=== PATIENT | male | born 1980 | race Caucasian/White ===

== ENCOUNTER 2017-01-21 02:08 | Emergency (ER) | payer OTHER ==
[~2017-01-21] VITALS: Ht 170.2 cm; Wt 93.0 kg
[~2017-01-21 02:08] MED LIST: OXYCODONE HYDROC5 MG PO; PHENERGAN25 M1 PO; PHENERGAN25 MG PO; SERTRALINE HYD100 MG PO; SERTRALINE HYDR50 MG PO; ZOLPIDEM TARTRA10 MG PO
[2017-01-21 02:31] VITALS: BP 133/83
--- NOTE | 2017-01-21 03:28 | ED UPPER/LOWER EXTREMITY COMPL ---
History of Present Illness General Chief Complaint: Laceration Procedure Stated Complaint: LAC TO RIGHT KNEE Source: patient Exam Limitations: no limitations Vital Signs & Intake/Output Vital Signs & Intake/Output Vital Signs Date Time Temp Pulse Resp B/P B/P Pulse O2 O2 Flow FiO2 Mean Ox Delivery Rate 01/21 0233 Room Air 01/21 0231 97.7 86 16 133/83 97 Room Air Allergies Coded Allergies: diphenhydramine (From BENADRYL) (Mild, SHAKEY 01/21/17) [id number] Antimigraine Agents (JOINT PAIN 01/21/17) Reconcile Medications Oxycodone Hydrochloride 5 MG TAB 1 TAB PO PRN PRN HEADACHE (Reported) Promethazine Hydrochloride (Phenergan) 25 MG SUP 1 TAB PO Q6 NAUSEA Promethazine Hydrochloride (Phenergan) 25 MG TAB 1 TAB PO Q6H PRN NAUSEA SERTRALINE HCL (Sertraline Hydrochloride) 100 MG TABLET 1 TAB PO DAILY DEPRESSION (Reported) Zolpidem Tartrate 10 MG TAB 1 TAB PO AT BEDTIME INSOMNIA (Reported) Triage Note: 36YO MALE TO TRIAGE W/CO LAC TO R KNEE SP CUT ON SOMETHING SHARP STICKING LOUT OF TRASH BAG WHILE TAKING OUT TRASH TONITE. Triage Nurses Notes Reviewed? yes HPI: Patient is a 36-year-old male past medical history of degenerative disc disease and insomnia presenting for a laceration of his right medial knee. The patient states he was taking out the trash and tripped on the last step. He was carrying a recycling bag and kicked it as he tripped. He cut his knee on some glass which he did not know was in the bag. He reports feeling slightly dizzy at the time. He denies any headaches, weakness, numbness, or tingling. He reports his last tetanus shot was 8 years ago. (RIO BARTLETT,[facility]) Past History Travel History Traveled to [place] past 21 day No Medical History Any Pertinent Medical History? see below for history Neurological: migraine Musculoskeletal: chronic back pain, DEGENERATIVE DISK DISEASE Psychiatric: insomnia Surgical History Surgical History: appendectomy Psychosocial History Who do you live with Other (see notes) Services at Home None What is your primary language Maltese Tobacco Use: Quit >30 days ago ETOH Use: denies use Illicit Drug Use: denies illicit drug use Family History Family History, If Any: MOTHER Relation not specified for: FHx: skin cancer Hx Contributory? No (RIO BARTLETT,[facility]) Review of Systems Review of Systems Constitutional: Denies: chills, diaphoresis, fever, malaise. EENTM: Reports: no symptoms. Respiratory: Reports: no symptoms. Cardiovascular: Reports: no symptoms. Gastrointestinal/Abdominal: Reports: no symptoms. Genitourinary: Reports: no symptoms. Musculoskeletal: Reports: see HPI. Skin: Reports: see HPI. Neurological/Psychological: Reports: see HPI, other. (RIO BARTLETT,[facility]) Review of Systems Hematologic/Endocrine: Reports: no symptoms. Immunological: Reports: no symptoms. All Other Systems: Reviewed and Negative (GERTRUDIS DIEHL MD) Physical Exam Physical Exam General Appearance: well developed/nourished, alert, awake, mild distress Head: atraumatic, normal appearance Cardiovascular/Respiratory: normal breath sounds Peripheral Pulses: 2+ radial (R), 2+ radial (L), 2+ tibialis posterior (R), 2+ tibialis posterior ( L), 2+ dorsalis pedis (R), 2+ dorsalis pedis (L) Gastrointestinal: soft, nontender, no rebound, no guarding Normal bowel sounds. Knee Right: right medial knee laceration 2-1/2 inches in diameter Comments: 5/5 UE and LE strength b/l (RIO BARTLETT,[facility]) Physical Exam Eyes: Bilateral: normal appearance, PERRL, EOMI. Ears, Nose, Throat: normal pharynx, normal ENT inspection Neck: normal inspection, supple, full range of motion Back: normal inspection, normal range of motion Shoulder Left: normal range of motion, normal inspection Shoulder Right: normal range of motion, normal inspection Elbow Left: normal range of motion, normal inspection Elbow Right: normal range of motion, normal inspection Hand Left: normal inspection, normal range of motion Hand Right: normal inspection, normal range of motion Leg Left: normal range of motion, normal inspection Leg Right: normal range of motion, normal inspection Hip Left: normal range of motion, normal inspection Hip Right: normal range of motion, normal inspection Knee Left: normal range of motion, normal inspection Foot Left: normal inspection, normal range of motion Foot Right: normal inspection, normal range of motion Neurologic/Tendon: normal sensation, normal motor functions, normal tendon functions (GERTRUDIS DIEHL MD) Progress Differential Diagnosis: laceration of R knee Plan of Care: Patient required 6 stitches. Comments: R medial knee laceration requiring 6 stitiches. Patient advised stitiches would need to be in place for 7-10 days and to follow up with PCP. (RIO BARTLETT,VELMA) Departure Departure Disposition: HOME OR SELF CARE Condition: Stable Clinical Impression Primary Impression: Laceration Referrals: CARLOS BARTLETT,HONORIO Casper (PCP/Family) Additional Instructions: Please keep stitches and wound area clean dry and intact. Please follow-up with your primary care physician within one week. Please return to the emergency department for worsening redness, swelling, pain, or new onset of pus. His return to the emergency department for any new concerns or worsening symptoms. Departure Forms: Customer Survey General Discharge Information (VELMA PATE MD) Resident Co-Sign Statement Statement: ED Attending supervision documentation- x I saw and evaluated the patient. I have also reviewed all the pertinent lab results and diagnostic results. I agree with the findings and the plan of care as documented in the Resident's documentation. [] I have reviewed the ED Record and agree with the Resident's documentation. [] Additions or exceptions (if any) to the Resident's note and plan are summarized below: [] (GERTRUDIS DIEHL MD) Procedures Laceration/Wound Repair Laceration/Wound Repair: Wound Location: lower extremity Wound's Depth, Shape: irregular, superficial Wound Length (cm): 4 Wound Explored: clean, no foreign body removed, irrigated extensively Irrigated w/ Saline (ccs): 250 Betadine Prep? No Anesthesia: lidocaine w/ epi Volume Anesthetic (ccs): 5 Wound Repaired With: sutures Suture Size/Type: 4:0, nylon Number of Sutures: 6 Layer Closure? No Sterile Dressing Applied: Yes Splint Applied? No Sling Applied? No Tetanus Status: up to date (GERTRUDIS DIEHL MD)
== END 2017-01-21 04:45 ==
LOC: ERH 02:08
DX: S81.011A Laceration without foreign body, right knee, initial encounter (principal); W25.XXXA Contact with sharp glass, initial encounter; Y92.9 Unspecified place or not applicable; Y93.9 Activity, unspecified

== ENCOUNTER 2017-09-17 11:02 | Emergency (ER) | payer OTHER ==
[~2017-09-17] VITALS: Ht 170.2 cm; Wt 95.3 kg
[~2017-09-17 11:02] MED LIST changes: +PROMETHAZINE HC25 M3 PO
--- NOTE | 2017-09-17 12:42 | ED NECK/BACK PAIN COMPLAINT ---
History of Present Illness General Chief Complaint: Low Back Pain/Injury Stated Complaint: LBP Source: patient, old records Exam Limitations: no limitations Vital Signs & Intake/Output Vital Signs & Intake/Output Vital Signs Date Time Temp Pulse Resp B/P B/P Pulse O2 O2 Flow FiO2 Mean Ox Delivery Rate 09/17 1442 99.0 95 19 150/87 96 Room Air 09/17 1118 97.7 84 18 98 Room Air Allergies Coded Allergies: diphenhydramine (From BENADRYL) (Mild, SHAKEY 07/07/17) [id number] Antimigraine Agents (JOINT PAIN 07/07/17) Reconcile Medications Bupropion HCl (Bupropion XL) 300 MG TAB.ER.24H 1 TAB PO QAM MENTAL HEALTH ( Reported) Citalopram Hydrobromide (Citalopram HBr) 40 MG TABLET 1 TAB PO DAILY MENTAL HEALTH (Reported) Hydroxyzine Pamoate 25 MG CAPSULE 1 CAP PO BID PRN ANXIETY (Reported) Oxycodone HCl 10 MG TABLET 1 TAB PO Q6H PRN PAIN (Reported) Quetiapine Fumarate (Seroquel) 100 MG TABLET 1 TAB PO DAILY MENTAL HEALTH ( Reported) Triage Note: C/O SUDDEN ONSET OF LOWER BACK AND R LEG PAIN X HOUR, OCCURRED WHILE DRIVING. STATES HE HAS A HERNIATED DISC (UNSURE OR LOCATION). Triage Nurses Notes Reviewed? yes Onset: Just prior to arrival Duration: hour(s):, constant, continues in ED, getting worse Timing: recent history Quality/Severity: severe, radiation, sharpness Location: lumbar spine, paraspinous muscles Radiation: upper legs, lower legs Context: turning/bending Method of Injury: twisted Loss of Consciousness: no loss of consciousness Modifying Factors: immobilization, movement Associated Symptoms: lower back pain, muscle spasm HPI: Patient reports long-standing history of degenerative back disease. Prior to admission while driving he felt severe sharp right low back pain radiating to the right lower leg associated with decreased range of motion improved with rest and position. He denies fever chills nausea vomiting diarrhea abdominal pain chest pain shortness breath headache dysuria rash bleeding change in motor sensory function change in bowel bladder habit. Past History Travel History Traveled to [place] past 21 day No Medical History Any Pertinent Medical History? see below for history Neurological: migraine EENT: NONE Cardiovascular: NONE Respiratory: NONE Gastrointestinal: NONE Hepatic: NONE Renal: NONE Musculoskeletal: chronic back pain, DEGENERATIVE DISK DISEASE Psychiatric: anxiety, depression, insomnia Endocrine: NONE Blood Disorders: NONE Cancer(s): NONE Surgical History Surgical History: appendectomy Psychosocial History Who do you live with Other (see notes) Services at Home None What is your primary language Hungarian Tobacco Use: Never used ETOH Use: denies use Family History Family History, If Any: MOTHER Relation not specified for: FHx: skin cancer Hx Contributory? No Review of Systems Review of Systems Constitutional: Reports: no symptoms. Eyes: Reports: no symptoms. Ears, Nose, Throat, Mouth: Reports: no symptoms. Respiratory: Reports: no symptoms. Cardiovascular: Reports: no symptoms. Gastrointestinal/Abdominal: Reports: no symptoms. Musculoskeletal: Reports: see HPI, back pain. Skin: Reports: no symptoms. Neurological/Psychological: Reports: no symptoms. All Other Systems: Reviewed and Negative Physical Exam Physical Exam General Appearance: well developed/nourished, alert, awake, anxious, severe distress, obese Head: atraumatic, normal appearance Eyes: Bilateral: normal appearance, PERRL, EOMI. Ears, Nose, Throat, Mouth: hearing grossly normal, moist mucous membrane Neck: normal inspection, supple, full range of motion, normal alignment, no midline tenderness Respiratory: normal breath sounds, chest non-tender, no respiratory distress, quiet respiration, lungs clear Cardiovascular: regular rate/rhythm, normal peripheral pulses, norml femoral pulses equa Peripheral Pulses: 4+ carotid (R), 4+ carotid (L) Gastrointestinal: normal bowel sounds, soft, non-tender, no organomegaly Back: normal inspection, normal range of motion, no vertebral tenderness Extremities: non-tender, normal range of motion, no ligament instability Straight Leg Raising: Right: Pain at ____ degrees (5). Left: Pain at ____ degrees (5). Sensory: Medial Le: L4R, L4L. Top of Foot: 2: L5R, L5L. Sole of Foot: 2: SIR, HUGH. Motor: Deficit L4 Right: No Deficit L4 Left: No Deficit L5 Right: No Deficit L5 Left: No Deficit S1 Right: No Deficit S1 Right: No DTR: Deficit L4 Left: No Deficit L4 Right: No Deficit S1 Left: No Deficit S1 Right: No Patellar: 3: L4 Right, L4 Left. Neurologic/Psych: no motor/sensory deficits, awake, alert, oriented x 3, normal mood/affect, slipcover cutter II-XII nml as tested Skin: intact, normal color, warm/dry Core Measures CVA/TIA Diagnosis: No Progress Differential Diagnosis: cauda equina syn, herniated disc, myofascial strain, sciatica Plan of Care: Current Medications Sig/Valeriy Start time Last Medication Dose Stop Time Status Admin Dexamethasone 10 MG ONCE ONE 09/17 1444 UNir (Decadron) 09/17 144 Lorazepam 1 MG ONCE ONE 09/17 144 UNVr (Ativan) 09/17 144 Diagnostic Imaging: Viewed by Me: CT Scan. Discussed w/RAD: CT Scan. Radiology Impression: Mild central disc protrusion is noted at L5-S1, appears unchanged since 09/09/2012. Departure Departure Time of Disposition: 1455 Disposition: HOME OR SELF CARE Condition: Stable Clinical Impression Primary Impression: Sciatica associated with disorder of lumbar spine Secondary Impressions: L4-L5 disc bulge Referrals: Lucius BARTLETT,Jonah Casper (PCP/Family) Departure Forms: Customer Survey General Discharge Information Prescriptions: Current Visit Scripts Cyclobenzaprine HCl 1 TAB PO TID PRN muscle strain #30 TAB Methylprednisolone. (Medrol) 0 PO SEE ADMIN CRITERIA #1 PAC
[2017-09-17] MEDS ORDERED: HYDROXYZINE PAM25 M2 PO (12:55)
[2017-09-17] MEDS ORDERED: SEROQUEL100 M1 PO (12:55)
[2017-09-17] MEDS ORDERED: CITALOPRAM HBR40 MG PO (12:55)
[2017-09-17] MEDS ORDERED: BUPROPION XL300 M1 PO (12:56)
[2017-09-17] MEDS ORDERED: OXYCODONE HCL10 M2 PO (12:56)
--- NOTE | 2017-09-17 14:17 | CT SCAN REPORT ---
EXAMINATION: CT LUMBAR SPINE WITHOUT CONTRAST CLINICAL INFORMATION: 36-year-old male presented with right lumbar pain radiating to the thigh. COMPARISON: CT of the lumbosacral spine done on 11/09/2012 and MRI of the lumbosacral spine done on 01/11/2013. TECHNIQUE: Helical non-contrast CT images were obtained through the lumbar spine and 0.625 and 1.25 mm axial reconstructions were reviewed along with sagittal and coronal MPRs. DLP: 1114.67 mGy-cm FINDINGS: The height, alignment of the lumbar vertebrae are well maintained. The posterior appendages are intact. The intervertebral disc height is well maintained. SPINAL LEVELS: T11-T12: Unremarkable. T12-L1: Unremarkable. L1-L2: Unremarkable. L2-L3: Unremarkable. L3-L4: Unremarkable. L4-L5: Unremarkable. L5-S1: Minimal central disc protrusion is noted, unchanged since prior study. Review of the visualized paraspinal soft tissues appear unremarkable. The visualized part of the pelvis also appears unremarkable. IMPRESSION: Mild central disc protrusion is noted at L5-S1, appears unchanged since 09/09/2012.
[2017-09-17 14:42] VITALS: BP 150/87
[2017-09-17] MEDS ORDERED: CYCLOBENZAPRINE10 M1 PO (14:57)
[2017-09-17] MEDS ORDERED: MEDROL4 M2 PO (14:57)
== END 2017-09-17 15:05 ==
LOC: ERH 11:02
DX: M54.41 Lumbago with sciatica, right side (principal)
CPT/HCPCS: 96374; 96375; 96376; J1885